=== PATIENT | female | born 1945 | race African-American/Black ===

== ENCOUNTER 2017-01-05 08:10 | Inpatient (IN) | payer OTHER ==
[2017-01-05] VITALS (7 sets, daily range): BP systolic 119–211; BP diastolic 55–122
[~2017-01-05] VITALS: Ht 144.8 cm; Wt 108.9 kg
--- NOTE | ~2017-01-05 | 2DMMODE ---
[facility] [address] [place] [address] 2 D/M-MODE ECHOCARDIOGRAM Name: DIANNAMAGDA Room #: 432-P [facility] IN ..#: [id number] Admission: 01/05/17 Attend Phys: Des Aaron, Discharge: Date of : 47 Date of Service: 01/06/17 1030 Report #: [id number] THIS REPORT FOR: //name// APPROVED REPORT Study performed: 01/06/2017 09:42:05 EXAM: Comprehensive 2D, Doppler, and color-flow Echocardiogram Patient Location: Echo lab Room #: 432 Status: routine BSA: 1.94 HR: 79 bpm BP: 212/124 mmHg Rhythm: NSR Other Information Study Quality: Adequate Technically limited study due to body habitus. Indications Dyspnea Chest Pain Hx: COPD, HTN, morbidly obese 2D Dimensions RVDd: 39.20 mm LVEF(%): 67.43 (>50%) IVSd: 13.25 (7-11mm) LVOT Diam: 20.03 (18-24mm) LVDd: 55.19 mm PWd: 13.47 (7-11mm) Ascending Ao: 37.81 (22-36mm) LVDs: 34.28 (25-40mm) Aortic Root: 35.27 mm Banerjee's LVEF: 67.43 % Volumes Left Atrial Volume (Systole) Single Plane 4CH: 63.17 mL Single Plane 2CH: 82.27 mL LA ESV Index: 41.00 mL/m2 Aortic Valve AoV Peak Solitario.: 1.47 m/s AO Peak Gr.: 8.63 mmHg LVOT Max P.63 mmHg LVOT Max V: 1.19 m/s HARRY Vmax: 2.54 cm2 [facility] [address] [address] 2 D/M-MODE ECHOCARDIOGRAM Name: MAGDA BUSTAMANTE Room #: 432-P [facility] IN ..#: [id number] Admission: 01/05/17 Attend Phys: Des Aaron, Discharge: Date of : 47 Date of Service: 01/06/17 1030 Report #: [id number] Mitral Valve E/A Ratio: 0.8 MV Decel. Time: 250.33 ms MV E Max Solitario.: 1.21 m/s MV A Solitario.: 1.43 m/s MV PHT: 72.60 ms IVRT: 83.04 ms Pulmonary Valve PV Peak Solitario.: 1.10 m/s PV Peak Gr.: 4.88 mmHg Pulmonary Vein P Vein S: 0.89 m/s P Vein D: 0.57 m/s P Vein S/D Ratio: 1.56 Tricuspid Valve TR Peak Solitario.: 2.81 m/s RAP Estimate: 10.00 mmHg TR Peak Gr.: 31.60 mmHg PA Pressure: 42.00 mmHg Left Ventricle The left ventricle is normal size. There is normal LV segmental wall motion. Mild concentric left ventricular hypertrophy. Left ventricular systolic function is normal. LVEF is 60-65%. Mild diastolic dysfunction is present (impaired relaxation pattern). Right Ventricle The right ventricle is normal size. The right ventricular systolic function is normal. Atria Left atrium is mild to moderately dilated. The right atrium size is normal. Aortic Valve Aortic valve is mildly calcified. No aortic regurgitation is present. There is no aortic valvular stenosis. Mitral Valve The mitral valve is normal in structure. Mild mitral annular calcification. Mild mitral regurgitation. Tricuspid Valve The tricuspid valve is normal in structure. There is trace to [facility] [address] [place] [address] 2 D/M-MODE ECHOCARDIOGRAM Name: MAGDA BUSTAMANTE Beverly Room #: 432-P [facility] IN ..#: [id number] Admission: 01/05/17 Attend Phys: Des Aaron, Discharge: Date of : 47 Date of Service: 01/06/17 1030 Report #: [id number] tricuspid regurgitation. The right atrial pressure is estimated at 10 mmHg. There is moderate pulmonary hypertension with an estimated PAP of 42mmHg. Pulmonic Valve The pulmonary valve is normal in structure. Mild pulmonic regurgitation. Great Vessels The aortic root is normal in size. The ascending aorta measures at the upper limits of normal. IVC is normal in size and collapses <50% with inspiration. Pericardium Trivial posterior fluid noted. <Conclusion> The left ventricle is normal size. LVEF is 60-65%. Left atrium is mild to moderately dilated. Aortic valve is mildly calcified. No aortic regurgitation is present. There is no aortic valvular stenosis. The mitral valve is normal in structure. Mild mitral annular calcification. Mild mitral regurgitation. The tricuspid valve is normal in structure. There is trace to mild tricuspid regurgitation. The right atrial pressure is estimated at 10 mmHg. There is moderate pulmonary hypertension with an estimated PAP of 42mmHg. The ascending aorta measures at the upper limits of normal. Trivial posterior fluid noted. <ELECTRONICALLY SIGNED> By: Ron Estrada MD 01/06/17 1030 1030 1030 Ron Estrada MD /INF
--- NOTE | ~2017-01-05 | EKG ---
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1945 Requested By: Patrick Farnsworth Order Number: [id number] MD: Hoang Kaur Measurements Intervals [place] Rate: 79 P: 32 NM: 155 QRS: 15 QRSD: 89 T: 9 QT: 409 QTc: 469 Interpretive Statements Sinus rhythm No significant abnormality Compared to ECG 03/20/2016 16:20:54 No significant change Electronically Signed On 01-05-2017 17:05:54 CDT by Hoang Kaur [email or web address] <ELECTRONICALLY SIGNED> By: Hoang Kaur MD, [facility] 01/05/17 1705 0847 0847 Hoang Kaur MD, [facility] /EPI
--- NOTE | ~2017-01-05 | HC ---
[facility] [place] [address] [address] [address] CONSULTATION Name: MAGDA BUSTAMANTE Room #: 432-P [facility] IN M.R.#: [id number] Admission: 01/05/17 Attend Phys: Des Aaron DO Discharge: Date of : 47 Report #: [id number] THIS REPORT FOR: //name// CC: Dick Aaron CHIEF COMPLAINT: Vague generalized left lower extremity and left knee pain. HISTORY OF PRESENT ILLNESS: This 71-year-old obese female with chronic lupus and other general medical problems has apparently been in an extended care facility for some time. I am uncertain whether she has been ambulatory or active in any fashion. She is a very poor historian. She notes she has had chronic left knee pain related to her lupus and periodic symptom flares. She has been evaluated 1 year ago with MRI study and x-rays of the left knee, which have revealed evidence of some generalized degenerative arthritis and some degenerative tearing of the lateral meniscus. Apparently, conservative management was recommended at that point. Recently, she has had various other symptoms including chest pain, hypertension and generalized joint discomfort apparently felt related to her lupus. She was admitted primarily for evaluation of these other problems. While here; however, she complains of ongoing left knee pain, which has been a similar problem for the past year. PHYSICAL EXAMINATION: At the time of my evaluation, she is difficult to assess given her morbid obesity and a very rambling history. She is resting in bed with the left knee dangling off to the side. She seems able to lift and move the leg and knee, although with some sense of discomfort. She is somewhat hypersensitive to palpation in a rather diffuse nonspecific fashion suggesting some symptom magnification. The left knee demonstrates a mild knee effusion. There is no redness or warmth. There is no sign of infection nor marked inflammation. There is moderate discomfort, both to palpation and movement, she complains with varus and valgus stress and also with manipulation of the patella. There is no obvious instability. The lower leg and foot demonstrate some generalized obesity and edema, but remainder of the objective exam, there seems to be fairly normal. ASSESSMENT AND PLAN: At this time, it seems that her left knee pain is chronic and relatively unchanged over the past year. She has previous MRI evidence of degenerative arthritis and meniscus damage. She also has a history of lupus and apparently recently has had some generalized joint discomfort related to this. I suspect her left knee symptoms are related to a combination of lupus and degenerative arthritis. We discussed treatment options. I would favor continued medical management and assistance with activity, transfers and ambulation. She may benefit from a knee injection and we have discussed this at some length today. I doubt that she is a candidate for any surgical intervention given her obesity, chronic knee symptoms and other significant comorbidity issues. I think we will need to consider these other conservative measures and talk again tomorrow. I have answered her questions and suggested [address] [address] CONSULTATION Name: MAGDA BUSTAMANTE Room #: 432-P [facility] IN M.R.#: [id number] Admission: 01/05/17 Attend Phys: Des Aaron DO Discharge: Date of : 47 Report #: [id number] we might consider knee joint injection if she wishes. I will talk again tomorrow and consider further treatment measures. For now, I would continue her current conservative medical management and address her other general medical problems. <ELECTRONICALLY SIGNED> By: Leo Rouse MD 01/08/17 0934 2209 0437 Leo Rouse MD /nt
[~2017-01-05 08:10] MED LIST: ADVAIR 250-501 EACH INH; ADVAIR HFA 230M12 GM INH; AGGRENOX 25 MG1 EACH PO; CANE MISCELL; CATAPRES0.2 M1 PO; CLONAZEPAM 1 MG1 M1 PO; CLONAZEPAM1 MG PO; COLACE100 MG PO; COREG6.25 MG PO; CYCLOBENZAPRINE5 MG PO; ENOXAPARIN120 MG/0.1 SUBQ; FIBER625 MG PO; HYDROXYZINE HCL25 M1 PO; LAMICTAL100 MG PO; LOPRESSOR50 PO; MIRALAX17 GM PO; NEURONTIN 300300 M1 PO; NORVASC10 MG PO; OMEPRAZOLE40 MG PO; OXYCODONE HCL E10 MG PO; OXYGEN MISCELL; OYSCO D TABLET1 EACH PO; PAROXETINE HCL10 MG PO; PERCOCET 10-321 EACH PO; PHENOBARBITAL100 MG PO; PLAQUENIL200 MG PO; PREDNISONE 10 M10 MG PO; TRINATE TABLET1 TAB PO; VALIUM5 MG PO; VITAMIN D1000 UNI1 PO; ZANTAC 150MG T150 MG PO
[2017-01-05] MEDS ORDERED: DILANTIN100 MG PO (08:25)
[2017-01-05] MEDS ORDERED: HYDROXYZINE HCL25 M1 PO (08:25)
[2017-01-05] MEDS ORDERED: IBUPROFEN 600600 M1 PO (08:28)
[2017-01-05 09:00] LABS: ABSOLUTE NEUTROPHILS 3.7 thou/uL (1.4-8.2); BASOPHILS 0.3 % (0.0-2.0); EOSINOPHILS 1.9 % (0.0-3.0); HEMATOCRIT 35.5 % (37.0-47.0); HEMOGLOBIN 11.9 gm/dL (12.0-15.0); LYMPHOCYTES 35.4 % (24.0-44.0); MCH 30.5 pg (26.0-34.0); MCHC 33.7 g/dL (28.0-37.0); MCV 90.6 fL (80.0-100.0); MONOCYTES 11.5 % (1.0-8.0); PLATELET COUNT 159 thou/uL (150-400); POLYS 50.9 % (36.0-66.0); RBC 3.91 mil/uL (4.20-5.00); RDW 14.4 % (10.5-14.5); WBC 7.2 thou/uL (4.0-11.0)
[2017-01-05 09:10] LABS: MANUAL DIFF NO
[2017-01-05 09:11] LABS: ANION GAP 8 mmol/L (7-16); BUN 14 mg/dL (7-18); CALCIUM 9.5 mg/dL (8.5-10.1); CHLORIDE 102 mmol/L (98-107); CO2 28 mmol/L (21-32); CREATININE 0.8 mg/dL (0.6-1.0); GLUCOSE 87 mg/dL (74-106); POTASSIUM 4.2 mmol/L (3.5-5.1); SODIUM 138 mmol/L (136-145)
[2017-01-05 09:20] LABS: TROPONIN-I < 0.04 ng/mL (<0.04-0.07)
[2017-01-05] MEDS ORDERED: PREDNISONE 10 M10 MG PO (09:47)
[2017-01-06 04:30] VITALS: BP 187/102
[2017-01-06 07:26] VITALS: BP 212/124
[2017-01-06 10:00] VITALS: BP 175/91; BP 180/99
[2017-01-06 13:18] LABS: ALBUMIN 3.3 g/dL (3.4-5.0); CALCIUM 9.2 mg/dL (8.5-10.1); POTASSIUM 4.3 mmol/L (3.5-5.1); TOTAL BILIRUBIN 0.2 mg/dL (<0.1-1.0); TOTAL PROTEIN 9.2 g/dL (6.4-8.2)
[2017-01-06 16:00] VITALS: BP 176/95
[2017-01-06 20:54] VITALS: BP 184/97
[2017-01-07 03:36] VITALS: BP 149/83
[2017-01-07 09:23] VITALS: BP 179/101
[2017-01-07 15:25] VITALS: BP 118/69
[2017-01-07 20:30] VITALS: BP 152/88
[2017-01-08 01:39] VITALS: BP 163/95
[2017-01-08 04:50] VITALS: BP 189/116
[2017-01-08 05:30] VITALS: BP 159/98
[2017-01-08 06:46] LABS: URINE BILIRUBIN NEGATIVE (Negative); URINE BLOOD NEGATIVE (Negative); URINE COLOR YELLOW; URINE GLUCOSE-RANDOM* NEGATIVE (Negative); URINE KETONES NEGATIVE (Negative); URINE NITRITE NEGATIVE (Negative); URINE PROTEIN (DIPSTICK) NEGATIVE (Negative); URINE SPECIFIC GRAVITY 1.015 (1.003-1.035); URINE UROBILINOGEN 0.2 E.U./dl (0.2-1.0)
[2017-01-08 07:07] LABS: URINE CREATININE-RANDOM* 61.4 mg/dL; URINE PROTEIN-RANDOM* 21.7 mg/dL (<11.9)
[2017-01-08 08:32] VITALS: BP 184/92
[2017-01-08 09:21] LABS: ALBUMIN 3.3 g/dL (3.4-5.0); CALCIUM 9.3 mg/dL (8.5-10.1); PHOSPHORUS 4.8 mg/dL (2.5-4.9); POTASSIUM 5.2 mmol/L (3.5-5.1)
[2017-01-08 16:07] VITALS: BP 174/99
[2017-01-08 20:12] VITALS: BP 177/104
[2017-01-09 03:07] VITALS: BP 182/97
[2017-01-09 07:10] LABS: HEMATOCRIT 34.1 % (37.0-47.0); HEMOGLOBIN 11.1 gm/dL (12.0-15.0); MCH 29.7 pg (26.0-34.0); MCHC 32.5 g/dL (28.0-37.0); MCV 91.2 fL (80.0-100.0); PLATELET COUNT 139 thou/uL (150-400); RBC 3.74 mil/uL (4.20-5.00); RDW 14.7 % (10.5-14.5); WBC 6.4 thou/uL (4.0-11.0)
[2017-01-09 07:13] LABS: MANUAL DIFF YES
[2017-01-09 07:18] LABS: CALCIUM 9.3 mg/dL (8.5-10.1); CREATININE 0.9 mg/dL (0.6-1.0); POTASSIUM 5.1 mmol/L (3.5-5.1)
[2017-01-09 08:32] LABS: ABSOLUTE NEUTROPHILS 3.5 thou/uL (1.4-8.2); ANISOCYTOSIS 1+; TOTAL CELL COUNT 100
[2017-01-09 08:33] LABS: LARGE PLATELETS OCCASIONAL
[2017-01-09 09:05] VITALS: BP 143/76
[2017-01-09] MEDS ORDERED: NICOTINE TRANSD21 M1 TRANSDERM (10:06)
[2017-01-09] MEDS ORDERED: CARVEDILOL25 MG PO (10:07)
[2017-01-09] MEDS ORDERED: CHLORTHALIDONE25 MG PO (10:08)
[2017-01-09] MEDS ORDERED: COZAAR 25 MG TA25 M1 PO (10:10)
== END 2017-01-09 13:15 | DRG 189 ==
LOC: ER 08:10 → EROBS 10:06 → 4E 10:06
PROVIDERS: Emergency Medicine; Family Medicine; Hospitalist
PROC: 02HV33Z Insertion of Infusion Device into Superior Vena Cava, Percutaneous Approach (ICD-10-PCS; principal; 2017-01-06)
PROC: B548ZZA Ultrasonography of Superior Vena Cava, Guidance (ICD-10-PCS; principal; 2017-01-06)
DX: J96.21 Acute and chronic respiratory failure with hypoxia (principal); Z68.43 Body mass index [BMI] 50.0-59.9, adult; I16.0 Hypertensive urgency; J44.9 Chronic obstructive pulmonary disease, unspecified; I10 Essential (primary) hypertension; M81.0 Age-related osteoporosis without current pathological fracture; F17.210 Nicotine dependence, cigarettes, uncomplicated; E66.9 Obesity, unspecified; I27.2 Other secondary pulmonary hypertension; G40.909 Epilepsy, unspecified, not intractable, without status epilepticus; L98.9 Disorder of the skin and subcutaneous tissue, unspecified; M17.12 Unilateral primary osteoarthritis, left knee; M32.9 Systemic lupus erythematosus, unspecified; Z96.641 Presence of right artificial hip joint; G89.29 Other chronic pain; M54.9 Dorsalgia, unspecified; Z86.19 Personal history of other infectious and parasitic diseases; Z88.0 Allergy status to penicillin; Z88.8 Allergy status to other drugs, medicaments and biological substances; Z82.49 Family history of ischemic heart disease and other diseases of the circulatory system; Z83.3 Family history of diabetes mellitus; Z88.6 Allergy status to analgesic agent; Z91.041 Radiographic dye allergy status; Z79.82 Long term (current) use of aspirin; Z79.899 Other long term (current) drug therapy
CPT/HCPCS: 10183; 27001

== ENCOUNTER 2017-06-18 15:15 | Emergency (ER) | payer OTHER ==
[~2017-06-18] VITALS: Ht 144.8 cm; Wt 136.1 kg
--- NOTE | ~2017-06-18 | EKG ---
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
--- NOTE | ~2017-06-18 | HC ---
[facility] [place] [address] [place] [address] CONSULTATION Name: MAGDA BUSTAMANTE Room #: DEP [facility]#: [id number] Admission: 06/18/17 Attend Phys: Discharge: 06/18/17 Date of : 47 Report #: [id number] THIS REPORT FOR: //name// CC: Dick Farrar REFERRAL PHYSICIAN: Dr. Delarosa. REASON FOR REFERRAL: Pneumonia. HISTORY OF PRESENT ILLNESS: The patient is a 72-year-old -[place]aur[place] female who presents to the Emergency Room with progressive dyspnea, hypoxia. A pulmonary consultation was requested. The patient has a history of lupus, hypertension. She had seizure disorder and TIA. She has also had trouble with morbid obesity. She has chronic O2 at 2 liters per minute. She resides in a facility. One week prior to presentation, the patient was said to have been sick with febrile illness. Symptoms progressively worsened with dyspnea and hypoxia. CT chest and chest x-ray performed showed a right upper lobe infiltrate in the proximal posterior segment. It should be noted the patient is a fair historian. Otherwise, denies any recent chest pain, nausea, vomiting, diarrhea. She notes that she has been gradually gaining weight. She states that they do not feed her properly in the longterm. She thinks exercise alone should allow her to lose weight. PAST MEDICAL HISTORY: Notable for lupus, hypertension, seizure disorder, TIA. According to the patient, she has a history of asthma and COPD. The patient has smoked in the past, but quit recently. PAST SURGICAL HISTORY: Unremarkable. ALLERGIES: CONTRAST DYE, TORADOL, PENICILLIN, REACTIONS NOT SPECIFIED. MEDICATIONS: From the facility include prednisone she has been placed on 60 mg once a day, Lasix 40 mg once a day, hydrocodone. Medication list appears to be incomplete. FAMILY HISTORY: Noncontributory. SOCIAL HISTORY: Tobacco as mentioned above. She resides in a nursing facility. She states that she does have children. She is single. [facility] [address] [place] [address] CONSULTATION Name: MAGDA BUSTAMANTE Room #: [facility]#: [id number] Admission: 06/18/17 Attend Phys: Discharge: 06/18/17 Date of : 47 Report #: [id number] REVIEW OF SYSTEMS: As mentioned above, is notable for progressive weight gain. She does have problems of chronic lower extremity pain with problems with intermittent pain involving her feet. PHYSICAL EXAMINATION: GENERAL: She is awake, alert, in no apparent distress. VITAL SIGNS: Temperature is 98 degrees Fahrenheit, pulse is 93, respiratory rate is 25, blood pressure is 210/112 mmHg, saturation is 96%. She stands 4 feet 9 inches tall, she weighs 270 pounds. HEENT: Normocephalic, atraumatic. NECK: Supple, without lymphadenopathy or thyromegaly. CHEST: Breath sounds are distant. No obvious wheezes, cannot hear any rales. CARDIOVASCULAR: Heart sounds are distant. No obvious murmurs or gallop. Pulses are 2+/4+ bilaterally. BREASTS: Exam is deferred. ABDOMEN: Obese, soft, nontender, no masses felt. GENITOURINARY: Deferred. RECTAL: Deferred. EXTREMITIES: 1+ edema bilaterally. Multiple scars seen around the ankle from what appears to be previous surgery. LABORATORY DATA: Chest x-ray and chest CT were reviewed showing evidence of right upper lobe infiltrate in the proximal posterior segment. Pulmonary pressures are enlarged. Otherwise, no other pathology seen. Chest x-ray also shows moderate stools in the colon. Troponin is normal. BNP 256. Lactic acid is normal. Influenza A and B negative. Electrolytes are normal, creatinine is normal. WBC 7500, hemoglobin 7.8, platelets are normal, no evidence of bandemia. IMPRESSION: 1. Right upper lobe infiltrate in a 72-year-old -[place]aur[place] female with lupus. Pneumonia is likely given clinical presentation in this immunocompromised patient. 2. Acute on chronic hypoxic respiratory failure due to above. Baseline arterial blood gas recommended. 3. Morbid obesity. The patient states that she was recommended to undergo a sleep study in the past, but never has done so. She is at high risk for sleep apnea. This should be evaluated once stable as an outpatient. 4. History of lupus. 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 She has chronic lower extremity pain. Because of corticosteroids, she has had trouble with progressive weight gain. 5. Chronic pain due to lupus involving lower extremities. 6. Prominent pulmonary arteries. The patient's morbid obesity along with lupus, the patient likely has pulmonary hypertension. Agree with echocardiogram. [address] [address] CONSULTATION Name: DIANNAMAGDA Beverly Room #: DEP [facility]#: [id number] Admission: 06/18/17 Attend Phys: Discharge: 06/18/17 Date of : 47 Report #: [id number] 7. Apparent tobacco use. RECOMMENDATION: Agree with broad spectrum antibiotics. In terms of antibiotics, coverage for community-acquired pneumonia will be sufficient. However, if clinically she does not respond or worsens, we will need to consider opportunistic infection given her immunocompromised state. A diagnostic bronchoscopy will be considered at that time. Baseline arterial blood gas will be helpful given morbid obesity. She is at high risk for developing sleep disorder along with possible obesity hypoventilation syndrome. It appears the patient has been on corticosteroids. I will continue high dose corticosteroids with slow taper. Rheumatologic consultation may be helpful to help with management with her chronic pains. Weight reduction will be very helpful in this patient as her BMI is in excess of more than 40. This alone will increase the morbidity for this patient. DVT and GI prophylaxis recommended. Thank you for this consultation. <ELECTRONICALLY SIGNED> By: Javier Rivera MD 07/21/17 1617 1331 1419 Javier Rivera MD /nt
[~2017-06-18 15:15] MED LIST changes: +CARVEDILOL25 MG PO; +CHLORTHALIDONE25 MG PO; +COZAAR 25 MG TA25 M1 PO; +DILANTIN100 MG PO; +HYDROCHLOROTH12.5 M1 PO; +IBUPROFEN 600600 M1 PO; +NICOTINE TRANSD21 M1 TRANSDERM; +OMEPRAZOLE 20 M20 M1 PO; +TESSALON PERLE100 MG PO; +TRAZODONE HCL50 MG PO; +VENTOLIN HFA 1818 GM INH; -ZANTAC 150MG T150 MG PO
[2017-06-18 17:19] LABS: ABSOLUTE NEUTROPHILS 3.8 thou/uL (1.4-8.2); BASOPHILS 0.5 % (0.0-2.0); EOSINOPHILS 2.3 % (0.0-3.0); HEMATOCRIT 29.8 % (37.0-47.0); HEMOGLOBIN 10.1 gm/dL (12.0-15.0); LYMPHOCYTES 28.9 % (24.0-44.0); MCH 30.7 pg (26.0-34.0); MCHC 33.9 g/dL (28.0-37.0); MCV 90.5 fL (80.0-100.0); PLATELET COUNT 165 thou/uL (150-400); POLYS 58.3 % (36.0-66.0); RBC 3.29 mil/uL (4.20-5.00); RDW 15.3 % (10.5-14.5); WBC 6.6 thou/uL (4.0-11.0)
[2017-06-18 17:31] LABS: ANION GAP 6 mmol/L (7-16); BUN 17 mg/dL (7-18); CALCIUM 8.7 mg/dL (8.5-10.1); CHLORIDE 104 mmol/L (98-107); CO2 30 mmol/L (21-32); CREATININE 0.8 mg/dL (0.6-1.0); GLUCOSE 130 mg/dL (74-106); POTASSIUM 4.2 mmol/L (3.5-5.1); SODIUM 140 mmol/L (136-145)
[2017-06-18 17:39] LABS: TROPONIN-I < 0.04 ng/mL (<0.06)
[2017-06-18] MEDS ORDERED: LASIX 40 MG TAB40 M2 PO (17:51)
[2017-06-18] MEDS ORDERED: PREDNISONE 20 M20 MG PO (17:51)
[2017-06-18] MEDS ORDERED: HYDROCODONE-AP1 EAC6 PO (17:51)
[2017-06-18 19:00] VITALS: BP 155/70
[2017-09-14] MEDS ORDERED: TESSALON PERLE100 MG PO (02:20)
[2017-09-14] MEDS ORDERED: TESSALON PERLE100 M1 PO (02:20)
[2017-09-14] MEDS ORDERED: AGGRENOX 25 MG1 EACH PO (02:28)
[2017-09-14] MEDS ORDERED: MELATONIN5 M4 PO (02:33)
[2017-10-01] MEDS ORDERED: LASIX 40 MG TAB40 M2 PO (15:18)
== END 2017-06-18 19:02 | disposition home or self-care (01) ==
LOC: ER 15:15 → EDBD 15:15 → ER 19:02
PROVIDERS: Physician Assistant
DX: J44.9 Chronic obstructive pulmonary disease, unspecified (principal); M32.9 Systemic lupus erythematosus, unspecified; I10 Essential (primary) hypertension; Z88.0 Allergy status to penicillin; Z91.041 Radiographic dye allergy status

== ENCOUNTER 2017-07-20 14:20 | Inpatient (IN) | payer OTHER ==
[~2017-07-20] VITALS: Ht 144.8 cm; Wt 122.5 kg
--- NOTE | ~2017-07-20 | HC ---
[facility] [place] [address] CONSULTATION Name: MAGDA BUSTAMANTE Room #: 424-P [facility] IN M.R.#: [id number] Admission: 07/20/17 Attend Phys: Dawit Delarosa MD Discharge: Date of : 47 Report #: [id number] THIS REPORT FOR: //name// CC: Dick Delarosa REASON FOR CONSULTATION: I was asked to evaluate concerning respiratory tract infection in the setting of COPD, lupus erythematosus and healthcare-associated environment. HISTORY OF PRESENT ILLNESS: The patient is a 72-year-old with underlying history of COPD, lupus erythematosus, and congestive heart failure. She had been treated for lower respiratory tract infection over a week ago. She was placed on Levaquin. Unclear if she actually received the dose or not. Over the last several days, she has had increased cough, sputum production, low-grade fever, shortness of breath. She does use oxygen 2 liters per day as a baseline. She has been on low dose corticosteroids for her lupus. Also, has been on this for her COPD. She has been on Plaquenil also for her lupus. She was brought into the Emergency Room on 07/20/2017. Here, she was placed on prednisone and Levaquin. Continues to require oxygen at 2 liters per nasal cannula. Cough has been minimally productive. She did have some hemoptysis. That has resolved. No nausea, vomiting or diarrhea. No dysuria or frequency. No pleuritic chest pain. She has had sinus congestion and postnasal drip. She also had some rhinorrhea. ALLERGIES: CONTRAST DYE, KETOROLAC, PENICILLIN. MEDICATIONS: As noted on her MAR, now on Levaquin and prednisone. PAST MEDICAL HISTORY: COPD, systemic lupus erythematosus, hypertension, seizure disorder, TIA, previous pneumonia. FAMILY HISTORY: Noncontributory. SOCIAL HISTORY: She is a past smoker. No significant alcohol intake. Lives in the nursing facility. She does note that one of her roommates has had a respiratory tract infection. She did not know the details. REVIEW OF SYSTEMS: As noted above with no rash or arthritis symptoms more than her normal. No headache or change in mental status. PHYSICAL EXAMINATION: VITAL SIGNS: Afebrile, hemodynamically stable. GENERAL: She is alert and cooperative, morbidly obese. On oxygen at 2 liters per nasal cannula. IV site unremarkable. The patient was eating her lunch. HEENT: Otherwise unremarkable. NECK: Supple. [facility] [address] [place] [address] CONSULTATION Name: MAGDA BUSTAMANTE Room #: 424-P [facility] IN [facility]#: [id number] Admission: 07/20/17 Attend Phys: Dawit Delarosa MD Discharge: Date of : 47 Report #: [id number] LUNGS: Decreased breath sounds bilaterally, no consolidation. HEART: Regular, without murmur. ABDOMEN: Obese, soft, nontender, no hepatosplenomegaly or mass. EXTREMITIES: Unremarkable. LABORATORY STUDIES: CT scan of the chest shows infiltrate involving the posterior aspect of the right upper lobe in addition to the central right lower lobe. She has underlying emphysema, granulomatous lymphadenopathy in the mediastinum. Sodium 137, potassium 4.1, bicarbonate 29, creatinine 0.9. Hemoglobin 10.8; platelet count 188,000; white count 7.5. Differential unremarkable. Blood cultures are negative to date. Sputum culture pending. Lactate 0.9. Influenza antigen negative. BNP 254. IMPRESSION AND PLAN: A 72-year-old with healthcare-associated pneumonia and exacerbation of her chronic obstructive pulmonary disease. ALLERGY to PENICILLIN. Agree with current antibiotic program. We will screen for MRSA and influenza and add Tamiflu. Check urine antigens and await microbiology reports. Follow up chest x-ray as we go forward. I agree with corticosteroids as well. <ELECTRONICALLY SIGNED> By: Robb Escamilla MD 07/22/17 1119 1355 1437 Robb Escamilla MD /nt
--- NOTE | ~2017-07-20 | 2DMMODE ---
[facility] [address], [place] [address] 2 D/M-MODE ECHOCARDIOGRAM Name: DIANNAMAGDA Beverly Room #: 424-P [facility] IN ..#: [id number] Admission: 07/20/17 Attend Phys: Dawit Delarosa, Discharge: Date of : 47 Date of Service: 07/21/17 1602 Report #: [id number] THIS REPORT FOR: //name// APPROVED REPORT Study performed: 07/21/2017 15:04:08 EXAM: Comprehensive 2D, Doppler, and color-flow Echocardiogram Patient Location: Bedside Room #: [facility] Status: routine BSA: 2.04 HR: 100 bpm BP: 148/73 mmHg Other Information Technically limited study due to body habitus, lung disease, inability to position patient. Indications Congestive Heart Failure COPD Dyspnea Hypertension/HDD Morbid obesity Aortic Valve AoV Peak Solitario.: 1.42 m/s AO Peak Gr.: 8.09 mmHg LVOT Max P.41 mmHg LVOT Max V: 1.05 m/s Pulmonary Valve PV Peak Solitario.: 1.19 m/s PV Peak Gr.: 5.70 mmHg Left Ventricle The left ventricle is normal size. There is normal LV segmental wall motion. Mild to moderate concentric left ventricular hypertrophy. The left ventricular systolic function is normal. The left ventricular ejection fraction is within the normal range. LVEF is 60-65%. This study is not technically sufficient to allow evaluation of the LV diastolic function. Right Ventricle The right ventricle is normal size. The right ventricular systolic function is normal. [facility] [address] [place] [address] 2 D/M-MODE ECHOCARDIOGRAM Name: MAGDA BUSTAMANTE Room #: 424-P [facility] IN ..#: [id number] Admission: 07/20/17 Attend Phys: Dawit Delarosa, Discharge: Date of : 47 Date of Service: 07/21/17 1602 Report #: [id number] Atria The left atrium size is normal. The right atrium size is normal. Aortic Valve Aortic valve is grossly normal in structure. No aortic regurgitation is present. There is no aortic valvular stenosis. Mitral Valve Poorly visualized. Mild mitral annular calcification. Mild leaflet calcification There is no mitral valve regurgitation noted. No evidence of mitral valve stenosis. Tricuspid Valve The tricuspid valve is normal in structure. There is no tricuspid valve regurgitation noted. Pulmonic Valve The pulmonary valve is normal in structure. There is no pulmonic valvular regurgitation. Great Vessels The aortic root is normal in size. IVC is normal in size and collapses >50% with inspiration. Pericardium Cannot rule out trace pericardial effusion <Conclusion> Limited echocardiogram The left ventricular systolic function is normal. There is normal LV segmental wall motion. LVEF 60-65%. Aortic valve is grossly normal in structure. No aortic regurgitation or stenosis Poorly visualized. Mild mitral annular calcification. Mild leaflet calcification No mitral valve regurgitation or stenosis Cannot rule out trace pericardial effusion <ELECTRONICALLY SIGNED> By: Hoang Kaur MD, [facility] 07/21/171601 01 01 Hoang Kaur MD, FAC /INF
--- NOTE | ~2017-07-20 | EKG ---
[address] [place] [address] ELECTROCARDIOGRAM REPORT Name: DIANNAMAGDA Beverly Room #: 424-P [facility] IN M.R.#: [id number] Admission: 07/20/17 Attend Phys: Dawit Delarosa MD Discharge: Date of : 47 Report #: [id number] THIS REPORT FOR: //name// [facility] ED Test Date: 2017-07-20 Test Time: 14:24:23 Pat Name: MAGDA BUSTAMANTE Department: Room: 424 Gender: F Pre Coder: ROBBY : 1945 Requested By: Leo Sullivan Order Number: [id number] MD: Hoang Kaur Measurements Intervals [place] Rate: 82 P: 30 MN: 149 QRS: 30 QRSD: 89 T: 19 QT: 379 QTc: 443 Interpretive Statements Sinus rhythm No significant abnormality Compared to ECG 06/18/2017 15:50:37 No significant changes Electronically Signed On 07-20-2017 19:29:35 CDT by Hoang Kaur [email or web address] <ELECTRONICALLY SIGNED> By: Hoang Kaur MD, [facility] 07/20/17 1929 1424 142 Hoang Kaur MD, [facility] /EPI
[~2017-07-20 14:20] MED LIST changes: +HYDROCODONE-AP1 EAC6 PO; +LASIX 40 MG TAB40 M2 PO; +PREDNISONE 20 M20 MG PO
[2017-07-20 14:34] VITALS: BP 122/70
[2017-07-20 16:19] LABS: ABSOLUTE NEUTROPHILS 4.4 thou/uL (1.4-8.2); BASOPHILS 0.5 % (0.0-2.0); EOSINOPHILS 1.2 % (0.0-3.0); HEMATOCRIT 29.3 % (37.0-47.0); HEMOGLOBIN 9.8 gm/dL (12.0-15.0); LYMPHOCYTES 25.7 % (24.0-44.0); MCH 30.1 pg (26.0-34.0); MCHC 33.3 g/dL (28.0-37.0); MCV 90.2 fL (80.0-100.0); MONOCYTES 11.5 % (1.0-8.0); PLATELET COUNT 146 thou/uL (150-400); POLYS 61.1 % (36.0-66.0); RBC 3.25 mil/uL (4.20-5.00); RDW 14.7 % (10.5-14.5); WBC 7.1 thou/uL (4.0-11.0)
[2017-07-20 16:28] LABS: CALCIUM 8.7 mg/dL (8.5-10.1); CREATININE 1.1 mg/dL (0.6-1.0)
[2017-07-20 18:00] VITALS: BP 122/70
[2017-07-20 18:05] VITALS: BP 142/75
[2017-07-20 20:49] VITALS: BP 144/72
[2017-07-20 23:40] VITALS: BP 185/95
[2017-07-21 05:30] VITALS: BP 188/100
[2017-07-21 08:56] VITALS: BP 213/112
[2017-07-21 11:29] LABS: HEMATOCRIT 32.4 % (37.0-47.0); HEMOGLOBIN 10.8 gm/dL (12.0-15.0); MCH 29.9 pg (26.0-34.0); MCHC 33.2 g/dL (28.0-37.0); MCV 90.1 fL (80.0-100.0); RBC 3.59 mil/uL (4.20-5.00); RDW 14.8 % (10.5-14.5); WBC 7.5 thou/uL (4.0-11.0)
[2017-07-21 11:37] LABS: CALCIUM 9.7 mg/dL (8.5-10.1); CREATININE 0.9 mg/dL (0.6-1.0); MAGNESIUM 1.7 mg/dL (1.8-2.4); POTASSIUM 4.1 mmol/L (3.5-5.1)
[2017-07-21 15:50] VITALS: BP 160/92
[2017-07-21 16:39] LABS: BE(vivo) 5.3 mmol/L (-2 to +3); HCO3 30.3 mmol/L (22.0-26.0); PCO2 45.9 mmHg (35.0-45.0); PO2 106.2 mmHg (80.0-100.0); pH 7.437 (7.360-7.450)
[2017-07-21 20:00] VITALS: BP 188/100
[2017-07-21 20:11] VITALS: BP 186/76
[2017-07-22 01:31] VITALS: BP 189/111
[2017-07-22 03:12] VITALS: BP 154/90
[2017-07-22 08:15] VITALS: BP 160/120
[2017-07-22 11:43] LABS: HEMATOCRIT 35.4 % (37.0-47.0); HEMOGLOBIN 11.7 gm/dL (12.0-15.0); MCH 29.5 pg (26.0-34.0); MCHC 33.1 g/dL (28.0-37.0); MCV 89.1 fL (80.0-100.0); RBC 3.97 mil/uL (4.20-5.00); RDW 14.9 % (10.5-14.5); WBC 8.9 thou/uL (4.0-11.0)
[2017-07-22 11:46] LABS: CALCIUM 9.7 mg/dL (8.5-10.1); CREATININE 0.9 mg/dL (0.6-1.0); MAGNESIUM 1.8 mg/dL (1.8-2.4); POTASSIUM 4.2 mmol/L (3.5-5.1)
[2017-07-22 20:00] VITALS: BP 165/91
[2017-07-23 04:08] LABS: CALCIUM 9.3 mg/dL (8.5-10.1); CREATININE 0.9 mg/dL (0.6-1.0); MAGNESIUM 1.9 mg/dL (1.8-2.4); POTASSIUM 4.2 mmol/L (3.5-5.1)
[2017-07-23 04:17] LABS: ABSOLUTE NEUTROPHILS 5.8 thou/uL (1.4-8.2); BASOPHILS 0.1 % (0.0-2.0); EOSINOPHILS 0.1 % (0.0-3.0); HEMATOCRIT 35.2 % (37.0-47.0); HEMOGLOBIN 11.8 gm/dL (12.0-15.0); LYMPHOCYTES 20.5 % (24.0-44.0); MCH 30.1 pg (26.0-34.0); MCHC 33.5 g/dL (28.0-37.0); MCV 89.8 fL (80.0-100.0); MONOCYTES 8.5 % (1.0-8.0); PLATELET COUNT 241 thou/uL (150-400); POLYS 70.8 % (36.0-66.0); RBC 3.92 mil/uL (4.20-5.00); RDW 14.9 % (10.5-14.5); WBC 8.2 thou/uL (4.0-11.0)
[2017-07-23 04:30] VITALS: BP 150/84
[2017-07-23 08:20] VITALS: BP 208/95
[2017-07-23] MEDS ORDERED: CLONAZEPAM 0.50.5 M1 PO (16:10)
[2017-07-23] MEDS ORDERED: METHOCARBAMOL750 MG PO (16:25)
[2017-07-23] MEDS ORDERED: DUONEB 2.5-0.5 M3 ML INH (16:26)
[2017-07-23 21:10] VITALS: BP 144/79
[2017-07-23 23:07] LABS: ADENOVIRUS Negative (Negative); INFLUENZA A Negative (Negative); INFLUENZA B Negative (Negative); METAPNEUMOVIRUS Negative (Negative); PARAINFLUENZA 1 Negative (Negative); PARAINFLUENZA 2 Negative (Negative); PARAINFLUENZA 3 Negative (Negative); RHINOVIRUS Negative (Negative); RSV A Negative (Negative); RSV B Negative (Negative)
[2017-07-24 03:17] VITALS: BP 124/58
[2017-07-24 06:22] LABS: HEMATOCRIT 35.5 % (37.0-47.0); HEMOGLOBIN 11.5 gm/dL (12.0-15.0); MCH 29.6 pg (26.0-34.0); MCHC 32.4 g/dL (28.0-37.0); MCV 91.3 fL (80.0-100.0); RBC 3.88 mil/uL (4.20-5.00); RDW 15.1 % (10.5-14.5)
[2017-07-24 06:43] LABS: CREATININE 1.1 mg/dL (0.6-1.0); MAGNESIUM 2.2 mg/dL (1.8-2.4); POTASSIUM 4.7 mmol/L (3.5-5.1)
[2017-07-24 07:40] VITALS: BP 162/77
[2017-07-24 08:55] VITALS: BP 162/77
[2017-07-24] MEDS ORDERED: LEVAQUIN 500 M500 M3 PO (10:37)
[2017-07-24] MEDS ORDERED: DUONEB 2.5-0.5 M3 ML INH (10:38)
[2017-07-24] MEDS ORDERED: PREDNISONE 10 M10 MG PO (10:40)
[2017-09-14] MEDS ORDERED: TESSALON PERLE100 M1 PO (02:20)
[2017-09-14] MEDS ORDERED: TESSALON PERLE100 MG PO (02:20)
[2017-09-14] MEDS ORDERED: AGGRENOX 25 MG1 EACH PO (02:28)
[2017-09-14] MEDS ORDERED: MELATONIN5 M4 PO (02:33)
[2017-10-01] MEDS ORDERED: LASIX 40 MG TAB40 M2 PO (15:18)
== END 2017-07-24 14:15 | DRG 193 ==
LOC: ER 14:20 → EROBS 17:17 → 4E 17:17 → EDBD 07-24 14:15
PROVIDERS: Emergency Medicine; Hospitalist; Internal Medicine; Internal Medicine Pulmonary Disease; Specialist
PROC: 05HD33Z Insertion of Infusion Device into Right Cephalic Vein, Percutaneous Approach (ICD-10-PCS; principal; 2017-07-21)
DX: J18.1 Lobar pneumonia, unspecified organism (principal); J96.21 Acute and chronic respiratory failure with hypoxia; J44.1 Chronic obstructive pulmonary disease with (acute) exacerbation; Z68.43 Body mass index [BMI] 50.0-59.9, adult; J44.0 Chronic obstructive pulmonary disease with (acute) lower respiratory infection; Z87.891 Personal history of nicotine dependence; G89.29 Other chronic pain; M19.90 Unspecified osteoarthritis, unspecified site; M32.9 Systemic lupus erythematosus, unspecified; E66.01 Morbid (severe) obesity due to excess calories; Z88.0 Allergy status to penicillin; Z91.041 Radiographic dye allergy status; Z86.73 Personal history of transient ischemic attack (TIA), and cerebral infarction without residual deficits; Z79.899 Other long term (current) drug therapy
CPT/HCPCS: 10183; 27001

== ENCOUNTER 2017-08-08 06:21 | Inpatient (IN) | payer OTHER ==
[~2017-08-08] VITALS: Ht 144.8 cm; Wt 140.6 kg
[2017-08-08] VITALS (7 sets, daily range): BP systolic 157–196; BP diastolic 43–104
--- NOTE | ~2017-08-08 | HC ---
[facility] [place] [address] CONSULTATION Name: MAGDA BUSTAMANTE Beverly Room #: 214-P ADM IN M.R.#: [id number] Admission: 08/08/17 Attend Phys: Dawit Delarosa MD Discharge: Date of : 47 Report #: [id number] THIS REPORT FOR: //name// CC: Dick Delarosa MD DATE OF SERVICE: 08/08/2017 REFERRING PROVIDER: Dr. Dawit Delarosa. REASON FOR CONSULTATION: Pneumonia and hypoxemic respiratory failure. CHIEF COMPLAINT: Shortness of breath. HISTORY OF PRESENT ILLNESS: Our group was asked to see the patient in consultation for hospitalization at [facility]. A pleasant 72-year-old woman with a past pulmonary history significant for some underlying possible obstructive lung disease as well as lupus, pneumonitis, recently hospitalized less than 1 month ago for what sounds like influenza and pneumonia, subsequently discharged; however, the patient states she was not receiving aerosolized treatments as frequently as ordered and not receiving her hydroxychloroquine for underlying systemic lupus. The patient tapered down her prednisone for having increasing symptoms of shortness of breath, cough with no significant sputum production. No fevers, chills or sweats. No chest pains. Notes increased lower extremity edema. Most recent echocardiogram showed normal left ventricular function. She was brought to the Emergency Department in hypoxemic respiratory failure, was severely distressed, placed on BiPAP initially in the Emergency Room and started on systemic steroids and antibiotic therapy. No recent bronchoscopy to further evaluate her diffuse pulmonary infiltrates, states that she does not have a laboratory technician to assist with management of her systemic lupus. States she has been living at [facility] for the last year due to disability, but has had some difficulty obtaining some of her medications. ALLERGIES: INCLUDE PENICILLIN, BETADINE, CONTRAST DYE, QUINAPRIL AND TORADOL. PAST MEDICAL HISTORY: 1. History of systemic lupus erythematosus, she states with manifestations of the joint and pulmonary. 2. History of rheumatoid arthritis. 3. Underlying chronic obstructive pulmonary disease. 4. History of tobacco abuse, quitting about one month ago. 5. Recent pneumonia. 6. Morbid obesity. 7. Prior cerebrovascular accident. She states associated with systemic lupus. [address] [address] CONSULTATION Name: MAGDA BUSTAMANTE Room #: 214-P [facility] IN ..#: [id number] Admission: 08/08/17 Attend Phys: Dawit Delarosa MD Discharge: Date of : 47 Report #: [id number]. Hypertension. OUTPATIENT MEDICATIONS: 1. Prednisone. 2. Lasix. 3. Hydroxychloroquine which she states she has not received in several weeks. 4. Omeprazole 20 mg daily. 5. Percocet p.r.n. 6. Supplemental oxygen, typically 2 liters per minute. She states she titrates up to 3 liters when short of breath. 7. Multivitamins. 8. Trazodone 50 mg at bedtime. 9. Phenobarbital 100 at bedtime. 10. Dilantin 500 mg at bedtime. SOCIAL HISTORY: She had been an active smoker up until about 6 weeks ago. No significant alcohol consumption. Currently medically disabled, lives at [facility] although unhappy with that situation. FAMILY HISTORY: Noncontributory. REVIEW OF SYSTEMS: CONSTITUTIONAL: No fevers, chills, sweats. ENT: No upper respiratory congestion, rhinorrhea. dysphagia. Does complain of dry oropharynx. CARDIOVASCULAR: No known cardiac disease. Most recent echocardiogram without significant cardiac dysfunction. GASTROINTESTINAL: No nausea, vomiting, diarrhea, constipation or abdominal pain. GENITOURINARY: No dysuria, no frequency or hematuria. INTEGUMENT: Denies any new rash or lupus associated rash. MUSCULOSKELETAL: Chronic joint pains. Left knee meniscal tear, awaiting surgical repair of right shoulder complaints, also awaiting possible surgical repair. PHYSICAL EXAMINATION: VITAL SIGNS: Afebrile, pulse 80s, respiratory rate 22, blood pressure 178/79, oxygen saturation currently 100% on 5 liters nasal cannula. GENERAL: This is an obese, elderly woman, does not appear in any distress, but having some difficulty speaking in full sentences. ENT: Dry oropharynx. No thrush. NECK: Supple, no lymphadenopathy. LUNGS: Bibasilar inspiratory crackles, diminished throughout. CARDIOVASCULAR: Heart was regular. No murmurs noted. ABDOMEN: Obese, soft, nontender, no masses. EXTREMITIES: With 2-3+ pitting lower extremity edema with prolonged recovery [facility] [address] [place] [address] CONSULTATION Name: MAGDA BUSTAMANTE Room #: 214-P [facility] IN M.R.#: [id number] Admission: 08/08/17 Attend Phys: Dawit Delarosa MD Discharge: Date of : 47 Report #: [id number]. LABORATORY DATA: White blood cell count 7000, hemoglobin 10, hematocrit 30, platelet count 144. Sodium 138, potassium 4.2, chloride 105, bicarbonate 27, BUN 16, creatinine 0.7, glucose 111. ProBNP 461. Respiratory viral panel is pending. No arterial blood gases performed. CT scan of the chest performed revealed similar findings to prior imaging, which revealed predominant ground glass opacities. There are cystic changes consistent with either fibrosis or emphysema, but also appeared to be more upper lobe predominant. IMPRESSION: 1. Acute on chronic hypoxemic respiratory failure due to pulmonary infiltrates. 2. Pulmonary infiltrates. Does not appear to be pulmonary edema, although does have a diffuse anasarca suggestive of volume problems, suspect much of it maybe related to lupus pneumonitis or other autoimmune process such as alveolar hemorrhage syndrome and should be pursued further by considering fiberoptic bronchoscopy. 3. Systemic lupus erythematosus/rheumatoid arthritis. Consider rheumatology evaluation as the patient states no laboratory technician at this time. 4. Morbid obesity. 5. Probable obstructive sleep apnea. 6. Hypertension, poorly controlled at present. SUGGESTIONS: 1. Systemic steroids. 2. Consider bronchoscopy with bronchial lavage. 3. Antibiotics per Infectious Disease Service. 4. Continue with bronchodilators. 5. Continuous oximetry monitoring. 6. Consider rheumatology evaluation. Thank you for requesting our suggestions. Discussed at length with the patient, previously seen by Dr. Rivera on most recent visit here. I will follow up in a.m. By: 1504 1531 Miguel Dudley MD /nt
--- NOTE | ~2017-08-08 | HC ---
[facility] [place] [address] CONSULTATION Name: MAGDA BUSTAMANTE Room #: 214-P ADM IN M.R.#: [id number] Admission: 08/08/17 Attend Phys: Dawit Delarosa MD Discharge: Date of : 47 Report #: [id number] THIS REPORT FOR: //name// CC: Dick Delarosa REASON FOR CONSULTATION: I was asked to evaluate concerning pneumonia. HISTORY OF PRESENT ILLNESS: The patient is a 72-year-old with underlying history of COPD and lupus erythematosus. Hospitalized 07/23/2017 to 07/24/2017 with lower respiratory tract infection. No organisms were identified. Treated with Tamiflu and Levaquin. Urine antigens were negative. MRSA screen negative. Viral respiratory panel: Blood cultures negative: Sputum culture normal erin. Her steroids were increased and she was later discharged only to return now with increased shortness of breath. Typically is on 3 liters of oxygen per nasal cannula. She has had increased tightness in the chest along with cough with brown sputum production. No pleuritic chest pain. No nausea, vomiting or diarrhea. No fever, chills or sweats. States she was down to 10 mg of prednisone a day. ALLERGIES: CONTRAST DYE, TORADOL, PENICILLIN, BETADINE, QUINAPRIL. MEDICATIONS: As noted on her MAR including the Levaquin, which has been discontinued about a week ago. Continued with Coreg, Cozaar, Percocet, prednisone, Tessalon Perles, Ventolin inhaler, DuoNeb inhaler. PAST MEDICAL HISTORY AND FAMILY HISTORY: Unchanged from her previous consultation and current H and P. REVIEW OF SYSTEMS: She has had no rash. Continues to have edema, no headache, dysuria or frequency. No nausea, vomiting or diarrhea. PHYSICAL EXAMINATION: VITAL SIGNS: Afebrile, hemodynamically stable. GENERAL: She is alert and cooperative, sitting up in her bed on BiPAP. HEENT: Unremarkable. NECK: Supple. LUNGS: Decreased breath sounds bilaterally. HEART: Regular, without murmur. ABDOMEN: Obese, soft, nontender, no hepatosplenomegaly or mass. EXTREMITIES: 2+ edema to her lower extremities. Mild pretibial tenderness. LABORATORY STUDIES: Hemoglobin 10, WBC 7.3, platelet count 144,000. Creatinine 0.7. BNP 461. Chest x-ray shows edema. CT scan shows basilar multifocal interstitial infiltrates most consistent with edema and possibly atypical infection. [address] [address] CONSULTATION Name: MAGDA BUSTAMANTE Room #: 214-P ADM IN [facility]#: [id number] Admission: 08/08/17 Attend Phys: Dawit Delarosa MD Discharge: Date of : 47 Report #: [id number] IMPRESSION: A 72-year-old underlying chronic obstructive pulmonary disease and systemic lupus erythematosus who has had recent antibiotic coverage for pneumonitis. As this is discontinued and her steroids have decreased, she has had a flare up. Indeterminate whether we are dealing with pulmonary edema or atypical pneumonitis. She has been immunosuppressed with her prednisone. Her echocardiogram had shown an EF of 60% and her BNP was only 460. Makes me more concerned about possible infectious etiology; however, she has had no fever, leukocytosis. In addition, her workup performed a little over 2 weeks ago, was nondiagnostic. RECOMMEND: Increasing her corticosteroids back up and restarting antibiotic therapy. We will reculture her sputum. We will reevaluate over the next 24 hours. If no improvement, would then consider bronchoscopy. We will also check sedimentation rate. <ELECTRONICALLY SIGNED> By: Robb Escamilla MD 08/09/17 1820 1156 1239 Robb Escamilla MD /nt
--- NOTE | ~2017-08-08 | EKG ---
[address] [place] [address] ELECTROCARDIOGRAM REPORT Name: MAGDA BUSTAMANTE Beverly Room #: 214-P ADM IN M.R.#: [id number] Admission: 08/08/17 Attend Phys: Dawit Delarosa MD Discharge: Date of : 47 Report #: [id number] THIS REPORT FOR: //name// [facility] ED Test Date: 2017-08-08 Test Time: 06:35:13 Pat Name: MAGDA BUSTAMANTE Department: Room: 214 Gender: F [employer]: HOA : 1945 Requested By: Alanna Mike Order Number: [id number] MD: Hoang Kaur Measurements Intervals [place] Rate: 93 P: 40 NM: 141 QRS: 27 QRSD: 85 T: 28 QT: 363 QTc: 452 Interpretive Statements Sinus rhythm No significant abnormality Compared to ECG 07/20/2017 14:24:23 No significant changes Electronically Signed On 08-08-2017 13:07:13 CDT by Hoang aKur [email or web address] <ELECTRONICALLY SIGNED> By: Hoang Kaur MD, [facility] 08/08/17 1307 4 4 Hoang Kaur MD, [facility] /EPI
[~2017-08-08 06:21] MED LIST changes: +CLONAZEPAM 0.50.5 M1 PO; +DUONEB 2.5-0.5 M3 ML INH; +LEVAQUIN 500 M500 M3 PO; +METHOCARBAMOL750 MG PO
[2017-08-08 08:14] LABS: ABSOLUTE NEUTROPHILS 4.7 thou/uL (1.4-8.2); BASOPHILS 1.2 % (0.0-2.0); HEMATOCRIT 30.1 % (37.0-47.0); LYMPHOCYTES 25.1 % (24.0-44.0); MCH 29.9 pg (26.0-34.0); MCHC 33.4 g/dL (28.0-37.0); MCV 89.5 fL (80.0-100.0); MONOCYTES 8.6 % (1.0-8.0); PLATELET COUNT 144 thou/uL (150-400); POLYS 64.1 % (36.0-66.0); RBC 3.36 mil/uL (4.20-5.00); RDW 15.2 % (10.5-14.5); WBC 7.3 thou/uL (4.0-11.0)
[2017-08-08 08:22] LABS: ANION GAP 6 mmol/L (7-16); BUN 16 mg/dL (7-18); CALCIUM 8.7 mg/dL (8.5-10.1); CHLORIDE 105 mmol/L (98-107); CO2 27 mmol/L (21-32); CREATININE 0.7 mg/dL (0.6-1.0); GLUCOSE 111 mg/dL (74-106); POTASSIUM 4.2 mmol/L (3.5-5.1); SODIUM 138 mmol/L (136-145)
[2017-08-08 08:31] LABS: TROPONIN-I < 0.04 ng/mL (<0.06)
[2017-08-08 20:47] LABS: BE(vivo) 2.8 mmol/L (-2 to +3); HCO3 28.1 mmol/L (22.0-26.0); PCO2 46.4 mmHg (35.0-45.0); sO2 94.8 % (92.0-98.0)
[2017-08-09 03:44] VITALS: BP 201/80
[2017-08-09 07:13] VITALS: BP 169/93
[2017-08-09 08:41] LABS: CALCIUM 8.8 mg/dL (8.5-10.1); CREATININE 0.9 mg/dL (0.6-1.0); MAGNESIUM 1.6 mg/dL (1.8-2.4); POTASSIUM 4.1 mmol/L (3.5-5.1)
[2017-08-09 09:03] LABS: HEMATOCRIT 32.4 % (37.0-47.0); HEMOGLOBIN 10.6 gm/dL (12.0-15.0); MCH 29.9 pg (26.0-34.0); MCHC 32.8 g/dL (28.0-37.0); MCV 91.2 fL (80.0-100.0); RBC 3.55 mil/uL (4.20-5.00); RDW 15.2 % (10.5-14.5); WBC 9.4 thou/uL (4.0-11.0)
[2017-08-09 11:00] VITALS: BP 185/98
[2017-08-09 19:41] VITALS: BP 170/68
[2017-08-10 03:53] VITALS: BP 173/91
[2017-08-10 07:04] LABS: HEMATOCRIT 26.9 % (37.0-47.0); HEMOGLOBIN 8.7 gm/dL (12.0-15.0); MCH 29.8 pg (26.0-34.0); MCHC 32.3 g/dL (28.0-37.0); MCV 92.3 fL (80.0-100.0); RBC 2.91 mil/uL (4.20-5.00); RDW 15.3 % (10.5-14.5); WBC 8.1 thou/uL (4.0-11.0)
[2017-08-10 07:23] LABS: CALCIUM 8.6 mg/dL (8.5-10.1); CREATININE 0.9 mg/dL (0.6-1.0); POTASSIUM 4.9 mmol/L (3.5-5.1)
[2017-08-10 07:30] VITALS: BP 198/103
[2017-08-10 09:09] LABS: BE(vivo) 0.2 mmol/L (-2 to +3); HCO3 27.1 mmol/L (22.0-26.0); PCO2 54.9 mmHg (35.0-45.0); PO2 99.2 mmHg (80.0-100.0); pH 7.312 (7.360-7.450); sO2 96.9 % (92.0-98.0)
[2017-08-10 11:13] VITALS: BP 156/97
[2017-08-10 19:20] VITALS: BP 165/67
[2017-08-11 04:11] VITALS: BP 158/83
[2017-08-11 07:24] LABS: HEMATOCRIT 32.7 % (37.0-47.0); MCH 29.9 pg (26.0-34.0); MCHC 32.7 g/dL (28.0-37.0); MCV 91.4 fL (80.0-100.0); RBC 3.57 mil/uL (4.20-5.00); RDW 15.6 % (10.5-14.5); WBC 9.1 thou/uL (4.0-11.0)
[2017-08-11 07:25] VITALS: BP 186/84
[2017-08-11 07:29] LABS: HEMOGLOBIN 10.7 gm/dL (12.0-15.0)
[2017-08-11 07:32] LABS: CALCIUM 8.8 mg/dL (8.5-10.1); POTASSIUM 4.5 mmol/L (3.5-5.1)
[2017-08-11 12:20] VITALS: BP 158/82
[2017-08-11 19:50] VITALS: BP 185/98
[2017-08-12 00:51] VITALS: BP 177/81
[2017-08-12 02:15] LABS: HEMATOCRIT 31.3 % (37.0-47.0); HEMOGLOBIN 10.2 gm/dL (12.0-15.0); MCH 29.6 pg (26.0-34.0); MCHC 32.6 g/dL (28.0-37.0); MCV 90.7 fL (80.0-100.0); RBC 3.45 mil/uL (4.20-5.00); RDW 15.5 % (10.5-14.5)
[2017-08-12 02:21] LABS: CALCIUM 8.6 mg/dL (8.5-10.1); CREATININE 0.9 mg/dL (0.6-1.0); POTASSIUM 5.2 mmol/L (3.5-5.1)
[2017-08-12 04:45] VITALS: BP 191/93
[2017-08-12 08:00] VITALS: BP 160/80
[2017-08-12 11:25] VITALS: BP 186/103
[2017-08-12 16:00] VITALS: BP 158/76
[2017-08-12 19:50] VITALS: BP 166/97
[2017-08-13 04:50] VITALS: BP 188/109
[2017-08-13 07:45] VITALS: BP 146/79
[2017-08-13 11:30] VITALS: BP 179/92
[2017-08-13 12:30] VITALS: BP 155/76
[2017-08-13] MEDS ORDERED: DOXYCYCLINE HYC50 MG PO (12:53)
[2017-08-13] MEDS ORDERED: PERCOCET 10-321 EACH PO (12:53)
[2017-08-13] MEDS ORDERED: PREDNISONE 10 M10 MG PO (12:54)
[2017-08-13] MEDS ORDERED: LASIX 40 MG TAB40 M2 PO (12:54)
[2017-08-13] MEDS ORDERED: KLOR-CON 1010 MEQ PO (12:56)
[2017-08-13 22:08] LABS: ADENOVIRUS Negative (Negative); INFLUENZA A Negative (Negative); INFLUENZA B Negative (Negative); METAPNEUMOVIRUS Negative (Negative); PARAINFLUENZA 1 Negative (Negative); PARAINFLUENZA 2 Negative (Negative); PARAINFLUENZA 3 Negative (Negative); RHINOVIRUS Negative (Negative); RSV A Negative (Negative); RSV B Negative (Negative)
== END 2017-08-13 16:40 | DRG 189 ==
LOC: ER 06:21 → EROBS 08:41 → 2N 10:18
PROVIDERS: Emergency Medicine; Internal Medicine; Internal Medicine Pulmonary Disease
PROC: 5A09357 Assistance with Respiratory Ventilation, Less than 24 Consecutive Hours, Continuous Positive Airway Pressure (ICD-10-PCS; principal; 2017-08-09)
PROC: 5A09357 Assistance with Respiratory Ventilation, Less than 24 Consecutive Hours, Continuous Positive Airway Pressure (ICD-10-PCS; 2017-08-10)
PROC: 5A09357 Assistance with Respiratory Ventilation, Less than 24 Consecutive Hours, Continuous Positive Airway Pressure (ICD-10-PCS; 2017-08-11)
PROC: 5A09357 Assistance with Respiratory Ventilation, Less than 24 Consecutive Hours, Continuous Positive Airway Pressure (ICD-10-PCS; 2017-08-12)
PROC: 5A09357 Assistance with Respiratory Ventilation, Less than 24 Consecutive Hours, Continuous Positive Airway Pressure (ICD-10-PCS; 2017-08-13)
DX: J96.21 Acute and chronic respiratory failure with hypoxia (principal); J18.9 Pneumonia, unspecified organism; J44.1 Chronic obstructive pulmonary disease with (acute) exacerbation; Z68.44 Body mass index [BMI] 60.0-69.9, adult; J44.0 Chronic obstructive pulmonary disease with (acute) lower respiratory infection; I10 Essential (primary) hypertension; M19.011 Primary osteoarthritis, right shoulder; M16.12 Unilateral primary osteoarthritis, left hip; M17.12 Unilateral primary osteoarthritis, left knee; G89.29 Other chronic pain; M32.9 Systemic lupus erythematosus, unspecified; M06.9 Rheumatoid arthritis, unspecified; E66.01 Morbid (severe) obesity due to excess calories; F17.210 Nicotine dependence, cigarettes, uncomplicated; J96.22 Acute and chronic respiratory failure with hypercapnia; G40.909 Epilepsy, unspecified, not intractable, without status epilepticus; I77.6 Arteritis, unspecified; Z79.899 Other long term (current) drug therapy; Z86.73 Personal history of transient ischemic attack (TIA), and cerebral infarction without residual deficits; Z88.0 Allergy status to penicillin; Z88.8 Allergy status to other drugs, medicaments and biological substances; Z91.041 Radiographic dye allergy status; Z83.3 Family history of diabetes mellitus; Z82.49 Family history of ischemic heart disease and other diseases of the circulatory system; Z79.82 Long term (current) use of aspirin
CPT/HCPCS: 10081; 27001

== ENCOUNTER 2017-10-05 09:44 | Inpatient (IN) | payer OTHER ==
[~2017-10-05] VITALS: Ht 142.2 cm; Wt 129.3 kg
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
--- NOTE | ~2017-10-05 | PLAN ---
[facility] [place] [address] REHAB UNIT PLAN OF CARE Name: MAGDA BUSTAMANTE Room #: 512-P ADM IN M.R.#: [id number] Admission: 10/05/17 Attend Phys: Leo Ramirez MD Discharge: Date of : [birth year] Report #: [id number] THIS REPORT FOR: //name// CC: Leo Lawson DATE OF SERVICE: 10/05/2017 HISTORY OF PRESENT ILLNESS: Please see the full admission history and physical as per Nelly Amin. She had originally been admitted to [facility] with chest tightness diagnosed with acute respiratory distress, non-ST elevation HI, acute renal failure, encephalopathy, E. coli, pyelonephritis and bacteremia. She has been followed by multiple consultants. She has gradually improved and has now been admitted for acute in-hospital inpatient rehabilitation. Neurology saw her as well indicating seizure disorder with possible nonepileptic events. They recommended continuing the medications that she was on. Please see the noted past medical history, habits, social history and review of systems. MEDICATIONS: Please see the full medication listing. This list includes her vitamins, herbals, and supplements. PHYSICAL EXAMINATION: GENERAL: She answers basic questions. Oriented to person and place. Decreased historian, however. CARDIAC: Regular rate and rhythm. CHEST: Sounds are clear to auscultation. ABDOMEN: Obese, bowel sounds positive, nontender. NEUROLOGIC: She has functional range of motion. Upper and lower extremity strength is grade 3+ to 4-/5. DTRs are trace to 1. No clonus. Needing min assist for sit to stand, min assist, ambulating 10 feet with a walker. ASSESSMENT: As noted above. She has the toxic encephalopathy medical complex with generalized debilitation, acute on chronic respiratory failure, E. coli pyelonephritis, non-ST elevation myocardial infarction, seizure disorder. Please see the remaining list as per the history and physical. From a postadmission physician evaluation perspective, there are no relevant changes since the preadmission screening. Please see the above review of prior and current medical and functional conditions and comorbidities. PLAN: From an overall plan of care perspective, this is based on the preadmission screen, post-admission physician evaluation and information garnered from therapy assessments. [address] [address] REHAB UNIT PLAN OF CARE Name: MAGDA BUSTAMANTE Room #: 512-P [facility] IN [facility]#: [id number] Admission: 10/05/17 Attend Phys: Leo Ramirez MD Discharge: Date of : [birth year] Report #: [id number] 1. Estimated length of stay is probably at least 2 weeks pending progress. 2. Medical prognosis is reasonably good. 3. Anticipated interventions includes the interdisciplinary acute inpatient rehabilitation program. 4. Anticipated functional outcomes would be for the patient to become modified independent with transfers, mobility, ADLs and improve with cognition, so that she can return back to the home setting. 5. Discharge destination will have to be further assessed. She had been at [facility] but is not desiring to return to that facility upon discharge. 6. Expected therapy by discipline includes PT, OT and speech 1 hour per day each five days a week throughout the duration of the acute inpatient rehabilitation stay. <ELECTRONICALLY SIGNED> By: Leo Ramirez MD 10/08/17 1516 0844 0915 Leo Ramirez MD /nt
--- NOTE | ~2017-10-05 | HC ---
[facility] [place] [address] CONSULTATION Name: MAGDA BUSTAMANTE Room #: 512-P [facility] IN .R.#: [id number] Admission: 10/05/17 Attend Phys: Leo Ramirez MD Discharge: 10/15/17 Date of : [birth year] Report #: [id number] THIS REPORT FOR: //name// CC: Leo Lawson DATE OF SERVICE: 10/10/2017 ATTENDING PHYSICIAN: Leo Ramirez MD SAFETY ENGINEER: Edilberto Jones PhD CLINICAL PRESENTATION: The patient is a 62-year-old -Citizen Of The [place] female admitted to the [facility] Rehabilitation Unit for comprehensive inpatient rehabilitation program to improve functional mobility, activities of daily living and self-care and mental status secondary to deficits from a toxic encephalopathy. She carries an admitting assessment of medical complexity with general debilitation, tbani-yf-imsffwg respiratory failure, bacteremia, non-ST elevation myocardial infarction, seizure disorder, COPD, lupus, chronic kidney disease, hypertension, diastolic congestive heart failure, obesity and depression. The patient was living in a long-term care facility prior to her admission to the [facility]. A complete description of her medical condition, history and medication can be found in her medical records. Neuropsychological consultation was requested to provide assistance in the assessment of cognitive and emotional status and to provide recommendations and services. The patient reports having been in long-term care prior to her hospitalization. She indicates that she was incarcerated for felony drug sales for approximately 4 years. She has been on probation since 12/2016. She reports a history of substance abuse. There is not a current use of substance abuse reported from the patient. She does acknowledge lupus and pain from orthopedic issues. Multiple surgeries are reported. The patient indicates having had one child. She also reports having had 21 siblings. TECHNIQUES UTILIZED: Clinical interview, review of medical records, staff consultation and behavioral observation, mini-mental status exam 2 standard version and clock drawing. EXAMINATION FINDINGS: The patient was alert and cooperative with the assessment. She was somewhat vague in her ability to accurately describe the events preceding her hospitalization. She reports difficulty with sleep, anxiety and depression. Pain is also reported as an ongoing issue. Appetite is good. She indicates that the treatment for the lupus and use of steroids has increased her appetite and weight. [address] [address] CONSULTATION Name: MAGDA BUSTAMANTE Room #: 512-P [facility] IN [facility].#: [id number] Admission: 10/05/17 Attend Phys: Leo Ramirez MD Discharge: 10/15/17 Date of : [birth year] Report #: [id number] Her performance on the MMSE-2 brief version was extremely low with a raw score of 12/16, which is a T score at 26 and percentile rank of 1. She was 3/3 for initial registration, 3/5 for orientation to time, 5/[address] and 1/3 for immediate recall of 3 items after a brief time delay and distraction. Her performance on the MMSE-2 standard version was extremely low with a raw score 21/30, T score 24, percentile rank of less than 1. She was 1/5 for serial sevens, 2/2 for naming, 1/1 for repetition. She could read and follow a single command and write a sentence. The patient was unable to accurately copy a simple geometric design. Clock drawing was of poor quality with difficulty in hand placement. The patient had requested a Klonopin and a NicoDerm patch prior to her assessment. Tobacco dependence and intermittent use of benzodiazepine will interfere with cognitive functioning. Anxiety is high as she is having trouble with problem solving. Deficits are suggested in immediate recall, sustained attention and concentration and visual spatial organization. DIAGNOSTIC IMPRESSION: Major neurocognitive disorder, unspecified, with intermittent agitation, extent to be determined, likely in the mild to moderate range. RECOMMENDATIONS: The patient will require assistance in the management of medication, nutrition and finances upon discharge. Assistance in the management of medication will be necessary for her to maintain safety. The use of a memory and orientation note book may also be helpful in her ability to organize and manage information necessary to engage in problem solving and assist in compensation for memory deficits. The use of medication with sedating features should be minimized as much as possible. I reviewed a relaxation technique with her, which did assist in the management of agitation. Thank you very much for allowing me to provide the consultation on this patient. <ELECTRONICALLY SIGNED> By: Edilberto Jones, PhD 10/18/17 1802 1432 1508 Edilberto Jones, PhD /nt
[~2017-10-05 09:44] MED LIST changes: +DOXYCYCLINE HYC50 MG PO; +KLOR-CON 1010 MEQ PO; +MELATONIN5 M4 PO; +TESSALON PERLE100 M1 PO
[2017-10-05] MEDS ORDERED: CATAPRES-TTS 20.2 MG TRANSDERM (13:10)
[2017-10-05] MEDS ORDERED: HEPARIN SO5000 UNIT/ SUBQ (13:10)
[2017-10-05] MEDS ORDERED: CLONIDINE0.1 PO (13:10)
[2017-10-05] MEDS ORDERED: COZAAR 25 MG TA25 M1 PO (13:10)
[2017-10-05] MEDS ORDERED: PREDNISONE 20 M20 MG PO (13:16)
[2017-10-05 16:00] VITALS: BP 189/106
[2017-10-05 19:33] VITALS: BP 122/56
[2017-10-06 06:24] LABS: HEMATOCRIT 28.5 % (37.0-47.0); HEMOGLOBIN 9.2 gm/dL (12.0-15.0); MCH 29.8 pg (26.0-34.0); MCHC 32.3 g/dL (28.0-37.0); MCV 92.3 fL (80.0-100.0); RBC 3.09 mil/uL (4.20-5.00); RDW 17.7 % (10.5-14.5); WBC 5.8 thou/uL (4.0-11.0)
[2017-10-06 06:34] LABS: CALCIUM 8.9 mg/dL (8.5-10.1); CREATININE 0.9 mg/dL (0.6-1.0); POTASSIUM 4.4 mmol/L (3.5-5.1)
[2017-10-06 08:00] VITALS: BP 193/103
[2017-10-06 10:44] VITALS: BP 147/84
[2017-10-06 19:22] VITALS: BP 180/83
[2017-10-07 05:00] VITALS: BP 158/70
[2017-10-07 06:00] VITALS: BP 153/67
[2017-10-07 07:55] VITALS: BP 188/94
[2017-10-07 21:13] VITALS: BP 180/82
[2017-10-08 08:15] VITALS: BP 164/77
[2017-10-08 12:22] VITALS: BP 162/76
[2017-10-08 17:00] VITALS: BP 170/72
[2017-10-08 20:15] VITALS: BP 149/78
[2017-10-09 07:45] VITALS: BP 181/93
[2017-10-09 11:25] VITALS: BP 185/65
[2017-10-09 15:46] VITALS: BP 189/92
[2017-10-09 20:57] VITALS: BP 169/76
[2017-10-10 00:05] VITALS: BP 146/76
[2017-10-10 04:14] VITALS: BP 159/84
[2017-10-10 07:30] VITALS: BP 190/81
[2017-10-10 12:00] VITALS: BP 154/96
[2017-10-10 16:58] VITALS: BP 190/81
[2017-10-10 19:30] VITALS: BP 129/73
[2017-10-11 05:49] LABS: HEMATOCRIT 30.9 % (37.0-47.0); HEMOGLOBIN 10.1 gm/dL (12.0-15.0); MCH 30.1 pg (26.0-34.0); MCHC 32.6 g/dL (28.0-37.0); MCV 92.3 fL (80.0-100.0); PLATELET COUNT 171 thou/uL (150-400); RBC 3.35 mil/uL (4.20-5.00); RDW 17.9 % (10.5-14.5); WBC 6.3 thou/uL (4.0-11.0)
[2017-10-11 05:57] LABS: CALCIUM 8.8 mg/dL (8.5-10.1); CREATININE 1.2 mg/dL (0.6-1.0); POTASSIUM 5.8 mmol/L (3.5-5.1)
[2017-10-11 07:40] VITALS: BP 198/95
[2017-10-11 08:30] LABS: ABSOLUTE NEUTROPHILS 3.7 thou/uL (1.4-8.2); PLATELET ESTIMATE NORMAL
[2017-10-11 10:10] VITALS: BP 145/74
[2017-10-11 15:12] VITALS: BP 143/74
[2017-10-11 19:22] VITALS: BP 142/78
[2017-10-12 04:55] LABS: ABSOLUTE NEUTROPHILS 3.9 thou/uL (1.4-8.2); BASOPHILS 0.2 % (0.0-2.0); EOSINOPHILS 0.5 % (0.0-3.0); HEMATOCRIT 30.3 % (37.0-47.0); HEMOGLOBIN 9.8 gm/dL (12.0-15.0); LYMPHOCYTES 29.1 % (24.0-44.0); MCH 30.4 pg (26.0-34.0); MCHC 32.4 g/dL (28.0-37.0); MCV 93.9 fL (80.0-100.0); MONOCYTES 11.8 % (1.0-8.0); PLATELET COUNT 159 thou/uL (150-400); POLYS 58.4 % (36.0-66.0); RBC 3.23 mil/uL (4.20-5.00); RDW 18.5 % (10.5-14.5); WBC 6.7 thou/uL (4.0-11.0)
[2017-10-12 05:14] LABS: CALCIUM 8.7 mg/dL (8.5-10.1); MAGNESIUM 2.2 mg/dL (1.8-2.4); POTASSIUM 5.8 mmol/L (3.5-5.1)
[2017-10-12 07:40] VITALS: BP 171/83
[2017-10-12 13:56] VITALS: BP 154/89
[2017-10-12 19:17] VITALS: BP 154/77
[2017-10-13 08:15] VITALS: BP 157/80
[2017-10-13 13:24] VITALS: BP 157/80
[2017-10-13 20:35] VITALS: BP 155/71
[2017-10-14 04:12] LABS: ABSOLUTE NEUTROPHILS 4.5 thou/uL (1.4-8.2); BASOPHILS 0.6 % (0.0-2.0); EOSINOPHILS 0.4 % (0.0-3.0); HEMATOCRIT 31.4 % (37.0-47.0); HEMOGLOBIN 10.2 gm/dL (12.0-15.0); LYMPHOCYTES 28.1 % (24.0-44.0); MCH 30.5 pg (26.0-34.0); MCHC 32.4 g/dL (28.0-37.0); MCV 93.9 fL (80.0-100.0); MONOCYTES 10.2 % (1.0-8.0); PLATELET COUNT 152 thou/uL (150-400); POLYS 60.7 % (36.0-66.0); RBC 3.35 mil/uL (4.20-5.00); RDW 19.1 % (10.5-14.5); WBC 7.4 thou/uL (4.0-11.0)
[2017-10-14 04:14] LABS: CALCIUM 9.1 mg/dL (8.5-10.1); MAGNESIUM 2.1 mg/dL (1.8-2.4); POTASSIUM 5.2 mmol/L (3.5-5.1)
[2017-10-14 09:00] VITALS: BP 148/80
[2017-10-14 20:00] VITALS: BP 211/106
[2017-10-14 21:33] VITALS: BP 211/106
[2017-10-15 08:55] VITALS: BP 157/96
[2017-10-15] MEDS ORDERED: PREDNISONE 20 M20 MG PO (10:47)
[2017-10-15] MEDS ORDERED: ERGOCALCIF50000 UNIT PO (10:47)
[2017-10-15] MEDS ORDERED: Hydrocerin Cream 4 O TOP (10:47)
[2017-10-15] MEDS ORDERED: LIDOCAINE35.44 GM TOP (10:47)
[2017-10-15] MEDS ORDERED: LASIX 20 MG TAB20 MG PO (10:47)
[2017-10-15 12:06] VITALS: BP 133/73
[2017-10-15 15:59] VITALS: BP 157/96
[2017-10-15 18:38] VITALS: BP 157/96
== END 2017-10-15 15:30 | DRG 91 ==
PROVIDERS: Nurse Practitioner; Nurse Practitioner Family
DX: G92 Toxic encephalopathy (principal); J96.20 Acute and chronic respiratory failure, unspecified whether with hypoxia or hypercapnia; I21.4 Non-ST elevation (NSTEMI) myocardial infarction; I50.33 Acute on chronic diastolic (congestive) heart failure; J69.0 Pneumonitis due to inhalation of food and vomit; N12 Tubulo-interstitial nephritis, not specified as acute or chronic; E87.0 Hyperosmolality and hypernatremia; Z68.44 Body mass index [BMI] 60.0-69.9, adult; N17.9 Acute kidney failure, unspecified; I13.0 Hypertensive heart and chronic kidney disease with heart failure and stage 1 through stage 4 chronic kidney disease, or unspecified chronic kidney disease; J44.0 Chronic obstructive pulmonary disease with (acute) lower respiratory infection; G40.909 Epilepsy, unspecified, not intractable, without status epilepticus; M06.9 Rheumatoid arthritis, unspecified; B96.20 Unspecified Escherichia coli [E. coli] as the cause of diseases classified elsewhere; M32.9 Systemic lupus erythematosus, unspecified; E66.9 Obesity, unspecified; F32.9 Major depressive disorder, single episode, unspecified; H57.10 Ocular pain, unspecified eye; G89.29 Other chronic pain; E55.9 Vitamin D deficiency, unspecified; D64.9 Anemia, unspecified; F17.210 Nicotine dependence, cigarettes, uncomplicated; N18.9 Chronic kidney disease, unspecified; F01.50 Vascular dementia, unspecified severity, without behavioral disturbance, psychotic disturbance, mood disturbance, and anxiety; R21 Rash and other nonspecific skin eruption; E87.5 Hyperkalemia; W18.39XA Other fall on same level, initial encounter; N76.0 Acute vaginitis; Z86.73 Personal history of transient ischemic attack (TIA), and cerebral infarction without residual deficits; Z99.81 Dependence on supplemental oxygen; Y93.89 Activity, other specified; Y92.89 Other specified places as the place of occurrence of the external cause; Y99.8 Other external cause status
CPT/HCPCS: 10112

== ENCOUNTER 2017-11-10 08:25 | Emergency (ER) | payer OTHER ==
[~2017-11-10] VITALS: Ht 144.8 cm; Wt 143.8 kg
--- NOTE | ~2017-11-10 | EKG ---
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
[~2017-11-10 08:25] MED LIST changes: +CATAPRES-TTS 20.2 MG TRANSDERM; +CLONIDINE0.1 PO; +ERGOCALCIF50000 UNIT PO; +HEPARIN SO5000 UNIT/ SUBQ; +Hydrocerin Cream 4 O TOP; +LASIX 20 MG TAB20 MG PO; +LIDOCAINE35.44 GM TOP
[2017-11-10 09:24] LABS: ABSOLUTE NEUTROPHILS 4.5 thou/uL (1.4-8.2); BASOPHILS 0.8 % (0.0-2.0); EOSINOPHILS 0.9 % (0.0-3.0); HEMATOCRIT 31.6 % (37.0-47.0); HEMOGLOBIN 10.6 gm/dL (12.0-15.0); MCHC 33.6 g/dL (28.0-37.0); MCV 92.4 fL (80.0-100.0); MONOCYTES 9.3 % (1.0-8.0); RBC 3.42 mil/uL (4.20-5.00); RDW 17.6 % (10.5-14.5); WBC 7.4 thou/uL (4.0-11.0)
[2017-11-10 09:34] LABS: ANION GAP 3 mmol/L (7-16); BUN 15 mg/dL (7-18); CALCIUM 9.2 mg/dL (8.5-10.1); CHLORIDE 101 mmol/L (98-107); CO2 30 mmol/L (21-32); CREATININE 0.9 mg/dL (0.6-1.0); GLUCOSE 150 mg/dL (74-106); POTASSIUM 4.2 mmol/L (3.5-5.1); SODIUM 134 mmol/L (136-145)
[2017-11-10 09:43] LABS: SGOT 28 U/L (15-37); SGPT 38 U/L (30-65); TOTAL BILIRUBIN 0.2 mg/dL (<0.1-1.0); TOTAL PROTEIN 8.3 g/dL (6.4-8.2); TROPONIN-I <0.06 ng/mL (<0.06)
[2017-11-10 09:46] LABS: PLATELET COUNT 147 thou/uL (150-400); PLATELET ESTIMATE NORMAL
== END 2017-11-10 10:53 ==
LOC: ER 08:25
PROVIDERS: Emergency Medicine
DX: J44.1 Chronic obstructive pulmonary disease with (acute) exacerbation (principal); I10 Essential (primary) hypertension; M17.12 Unilateral primary osteoarthritis, left knee; M19.011 Primary osteoarthritis, right shoulder; M16.12 Unilateral primary osteoarthritis, left hip; G89.29 Other chronic pain; Z87.891 Personal history of nicotine dependence; Z86.73 Personal history of transient ischemic attack (TIA), and cerebral infarction without residual deficits; Z88.6 Allergy status to analgesic agent; Z88.0 Allergy status to penicillin; Z91.041 Radiographic dye allergy status; Z91.048 Other nonmedicinal substance allergy status
CPT/HCPCS: 27001